=== PATIENT | male | born 1970 | race Caucasian/White ===

== ENCOUNTER 2017-05-22 14:22 | Emergency (ER) | payer MEDICAID | END 2017-05-22 15:10 | disposition home or self-care (01) | LOC: FTE 14:22 | DX: J32.9 Chronic sinusitis, unspecified (principal) | CPT/HCPCS: 99283; Z7502 ==

== ENCOUNTER 2017-07-10 12:46 | Emergency (ER) | payer MEDICAID | END 2017-07-10 14:17 | disposition home or self-care (01) | LOC: FTE 12:46 | DX: J32.9 Chronic sinusitis, unspecified (principal); R40.2142 Coma scale, eyes open, spontaneous, at arrival to emergency department; R40.2252 Coma scale, best verbal response, oriented, at arrival to emergency department; R40.2362 Coma scale, best motor response, obeys commands, at arrival to emergency department | CPT/HCPCS: 70486; 99284-25 ==

== ENCOUNTER 2017-12-20 10:02 | Emergency (ER) | payer MEDICAID | END 2017-12-20 10:56 | disposition home or self-care (01) | LOC: FTE 10:02 | DX: J06.9 Acute upper respiratory infection, unspecified (principal) | CPT/HCPCS: 99283; Z7502 ==

== ENCOUNTER 2018-01-09 11:10 | Emergency (ER) | payer MEDICAID ==
[2018-01-09 12:29] LABS: ADD MAN DIFF? NO
[2018-01-09 12:34] LABS: BASOPHIL # 0.1 10^3/ul (0.0-0.1); BASOPHILS % 0.9 % (0.0-2.0); HEMATOCRIT 43.3 % (42.0-52.0); HEMOGLOBIN 13.7 g/dl (14.0-18.0); LYMPHOCYTES # 2.1 10^3/ul (0.8-2.9); LYMPHOCYTES % 37.5 % (15.0-51.0); MEAN CORPUSCULAR HEMOGLOBIN 26.2 pg (29.0-33.0); MEAN CORPUSCULAR HGB CONC 31.6 g/dl (32.0-37.0); MEAN CORPUSCULAR VOLUME 82.8 fl (82.0-101.0); MEAN PLATELET VOLUME 10.1 fl (7.4-10.4); MONOCYTE # 0.6 10^3/ul (0.3-0.9); NEUTROPHIL # 2.9 10^3/ul (1.6-7.5); NEUTROPHILS % 51.2 % (39.0-77.0); PLATELET COUNT 240 10^3/UL (140-415); RED BLOOD COUNT 5.23 10^6/ul (4.70-6.10); RED CELL DISTRIBUTION WIDTH 13.2 % (11.5-14.5)
[2018-01-09 12:34] LABS: WHITE BLOOD COUNT 5.7 10^3/ul (4.8-10.8)
[2018-01-09 13:01] LABS: ALANINE AMINOTRANSFERASE 33 IU/L (13-69); ALBUMIN 4.5 g/dl (3.3-4.9); ALBUMIN/GLOBULIN RATIO 1.32; ALKALINE PHOSPHATASE 61 IU/L (42-121); ANION GAP 8 (5-13); ASPARTATE AMINO TRANSFERASE 30 IU/L (15-46); BILIRUBIN,INDIRECT 0.5 mg/dl (0-1.1); BILIRUBIN,TOTAL 0.5 mg/dl (0.2-1.3); BLOOD UREA NITROGEN 13 mg/dl (7-20); CALCIUM 9.7 mg/dl (8.4-10.2); CARBON DIOXIDE 30 mmol/L (21-31); CHLORIDE 105 mmol/L (97-110); CREATININE 0.95 mg/dl (0.61-1.24); Estimated GFR > 60 mL/min (>60); GLUCOSE 100 mg/dl (70-220); POTASSIUM 4.4 mmol/L (3.5-5.1); SODIUM 143 mmol/L (135-144); TOTAL PROTEIN 7.9 g/dl (6.1-8.1)
== END 2018-01-09 13:30 | disposition home or self-care (01) ==
LOC: FTE 11:10
DX: J32.9 Chronic sinusitis, unspecified (principal)
CPT/HCPCS: 70450; 80053; 85025; 99284-25